=== PATIENT | female | born 1985 | race African-American/Black ===

== ENCOUNTER 2017-04-15 09:53 | Inpatient (IN) | payer BC ==
[~2017-04-15] VITALS: Ht 167.6 cm; Wt 159.0 kg
[~2017-04-15 09:53] MED LIST: CIPRO500 MG PO; NORMODYNE,TRAN200 MG PO; VIBRAMYCIN100 MG PO; ZANTAC150 MG PO; ZOFRAN ODT4 MG PO; ZOLOFT50 MG PO
[2017-04-15 10:36] LABS: BASOPHIL COUNT 0.1 K/uL (0-0.1); EOSINOPHIL COUNT 0.2 K/uL (0-0.3); IMMATURE GRANULOCYTE (%) 0.3 % (0.0-0.7); LYMPHOCYTE COUNT 2.4 K/uL (1.0-2.8); MCH 24.6 PG (29.0-34.0); MCHC 30.3 G/DL (30.0-36.0); MCV 81.3 FL (83-99); MEAN PLAT.VOLUME 10.2 uM^3 (9.5-12.4); MONOCYTE (%) 6.6 % (3-12); MONOCYTE COUNT 0.6 K/uL (0-0.8); NEUTROPHIL (%) 64.6 % (45-76); PLATELET COUNT 294 K/uL (156-360); RBC DIS.WIDTH-CV 14.4 % (11.8-14.6); RBC DIS.WIDTH-SD 42.4 % (39-53); RED BLOOD COUNT 4.92 M/uL (3.80-5.20); WHITE BLOOD COUNT 9.3 K/uL (4.1-10.2)
[2017-04-15 10:48] LABS: CHLORIDE 106 mEq/L (99-109); POTASSIUM 3.9 mEq/L (3.7-5.4); SODIUM 139 mEq/L (136-147)
[2017-04-15 10:50] LABS: GLUCOSE 98 mg/dL (70-99)
[2017-04-15 10:51] LABS: ANION GAP 9 MEQ/L (2-14)
[2017-04-15 10:54] LABS: GFR ESTIMATE (CALCULATED) > 59 mL/min/
[2017-04-15 10:55] LABS: UREA NITROGEN (BUN) 9 mg/dL (9-23)
[2017-04-15 14:10] LABS: TROP-I INTERPRETATION NEGATIVE; TROPONIN-I 0.03 ng/mL (0.0-0.30)
[2017-04-15 15:14] LABS: ADD MIUA? YES; BILIRUBIN NEGATIVE; BLOOD LARGE; COLOR YELLOW ((YELLOW)); GLUCOSE (STRIP) NEGATIVE; KETONES NEGATIVE; LEUKOCYTES TRACE; NITRITE NEGATIVE; PROTEIN (STRIP) >=500; SPECIFIC GRAVITY 1.024 (1.000-1.030); UROBILINOGEN 0.2 MG/DL (0.2-1.0)
[2017-04-15 15:32] LABS: BACTERIA 1+ /HPF; CASTS NONE SEEN /LPF; CRYSTALS NONE SEEN; EPITHELIAL CELLS 1+ /HPF; MUCUS RARE /LPF; RED BLOOD CELLS TNTC /HPF (0-5); WHITE BLOOD CELLS 0-5 /HPF (0-5)
[2017-04-15 15:46] VITALS: BP 174/124
[2017-04-15 19:16] VITALS: BP 157/106
[2017-04-15 20:07] LABS: TROP-I INTERPRETATION NEGATIVE; TROPONIN-I 0.03 ng/mL (0.0-0.30)
[2017-04-16] VITALS (8 sets, daily range): BP systolic 143–188; BP diastolic 85–107
[2017-04-16] MEDS ORDERED: GUAIFENESIN DM S5 ML PO (13:04)
[2017-04-16] MEDS ORDERED: FLONASE16 G1 BOTH NARES (13:06)
[2017-04-16] MEDS ORDERED: OCEAN NASAL 0.645 ML BOTH NARES (13:06)
[2017-04-16] MEDS ORDERED: TESSALON PERLE100 MG PO (13:07)
[2017-04-16] MEDS ORDERED: APRESOLINE10 MG PO (13:09)
[2017-04-17 03:40] VITALS: BP 179/96
[2017-04-17 04:05] VITALS: BP 139/73
[2017-04-17 08:25] VITALS: BP 183/98
[2017-04-17 09:46] VITALS: BP 139/73
[2017-04-17 12:21] VITALS: BP 172/91
[2017-04-17] MEDS ORDERED: CARVEDILOL6.25 MG PO (13:54)
[2017-04-17] MEDS ORDERED: ENTRESTO 24 MG1 EACH PO (13:54)
[2017-04-17] MEDS ORDERED: BENZONATATE100 MG PO (13:55)
[2017-04-17] MEDS ORDERED: FLONASE16 G1 BOTH NARES (13:55)
[2017-04-17] MEDS ORDERED: LASIX20 MG PO (13:56)
== END 2017-04-17 17:13 | disposition home or self-care (01) | DRG 304 ==
LOC: EME 09:53 → EDOF 13:19 → 5WEST 13:19 → ENRESERV 13:22 → EDOF 13:33 → ENRESERV 13:43 → 5WEST 15:20 → ENPENDDIS 04-17 → 5WEST 04-17 17:13
PROVIDERS: Emergency Medicine; Nurse Practitioner Family
DX: I16.0 Hypertensive urgency (principal); J18.9 Pneumonia, unspecified organism; I50.23 Acute on chronic systolic (congestive) heart failure; E66.01 Morbid (severe) obesity due to excess calories; I34.0 Nonrheumatic mitral (valve) insufficiency; J98.11 Atelectasis; I11.0 Hypertensive heart disease with heart failure; I42.0 Dilated cardiomyopathy; I27.20 Pulmonary hypertension, unspecified; Z79.899 Other long term (current) drug therapy; Z82.3 Family history of stroke; Z82.49 Family history of ischemic heart disease and other diseases of the circulatory system; Z83.3 Family history of diabetes mellitus
CPT/HCPCS: 71010; 80048; 81003; 84443; 84484; 85025; 93005; 93306; 94640; 94640 76; 94799; 99202; 99281; 99285; G0378; J0360; J1650; J1940